=== PATIENT | female | born 1940 | race Caucasian/White ===

== ENCOUNTER 2021-01-18 17:27 | Emergency (ER) | payer MEDICARE, BC ==
[~2021-01-18] VITALS: Ht 162.6 cm; Wt 64.0 kg
[2021-01-18] MEDS ORDERED: ASPIRIN 81 MG TABLET CHEW PO ONE (18:00)
[2021-01-18 18:10] LABS: BASOPHILS % (AUTO) 1 % (0-1); EOSINOPHILS % (AUTO) 2 % (1-7); LYMPHOCYTES % (AUTO) 35 % (22-44); MEAN CORPUSCULAR HEMOGLOBIN 31.5 pg (27.0-34.8); MEAN CORPUSCULAR HGB CONC 33.5 g/dL (32.4-35.8); MEAN PLATELET VOLUME 8.3 fL (7.4-10.4); MONOCYTES % (AUTO) 8 % (2-9); NEUTROPHILS % (AUTO) 55 % (42-75); PLATELET COUNT 215 x10^3/uL (130-400); RED BLOOD COUNT 4.45 x10^6/uL (3.82-5.3)
[2021-01-18 18:12] LABS: MD NO
--- NOTE | 2021-01-18 18:16 | NUR ---
HOUSEMAN NOTE: PT TO ROOM FROM LOBBY
[2021-01-18] MEDS ORDERED: ASPIRIN 81 MG TABLET CHEW ONE (18:18)
[2021-01-18 18:23] LABS: ALANINE AMINOTRANSFERASE 20 U/L (12-78); ANION GAP 6 mmol/L (5-15); CALCIUM 9.3 mg/dL (8.5-10.1); CHLORIDE 112 mmol/L (98-107); CREATININE 1.01 mg/dL (0.55-1.02)
[2021-01-18 18:25] LABS: ALKALINE PHOSPHATASE 72 U/L (45-117); BILIRUBIN,TOTAL 0.5 mg/dL (0.2-1.0); TOTAL PROTEIN 7.6 g/dL (6.4-8.2)
--- NOTE | 2021-01-18 18:27 | NUR ---
CC OF HIGH BP, PT STATES IT STARTED AT 159/70 AT NOON AND GRADUALLY INCREASED FROM THERE. PT HAS HX OF THIS HAPPENING IN [place] AND FOLLOWED UP WITH PCP THEN, NO NEW MEDS.
[2021-01-18] MEDS ORDERED: LISINOPRIL 10 MG TABLET ONE (18:41)
[2021-01-18] MEDS ORDERED: LISINOPRIL 10 MG TABLET PO ONE (19:00)
[2021-01-18 20:09] VITALS: BP 139/77
== END 2021-01-18 20:29 | disposition home or self-care (01) ==
LOC: ED 20:20
DX: I10 Essential (primary) hypertension (principal); R94.31 Abnormal electrocardiogram [ECG] [EKG]
CPT/HCPCS: 36415; 80053; 85025; 93005; 99284